=== PATIENT | female | born 1960 | race American Indian/Alaskan Native ===

== ENCOUNTER 2017-11-30 17:12 | Inpatient (IN) | payer MEDICAID ==
[2017-11-30 17:12] VITALS: BMI 22.8
--- NOTE | 2017-11-30 17:42 | ED PDOC ---
Arrival/HPI <Theo Dewitt P - Last Filed: 11/30/17 21:36> - General Historian: Patient <Cedric Castro - Last Filed: 12/01/17 09:16> - General Chief Complaint: Abdominal Pain Time Seen by Provider: 11/30/17 17:30 - History of Present Illness Narrative History of Present Illness (Text): 11/30/17 17:36 57 y/o female, pmh including htn/copd, nkda, post menopausal, c/o abdominal pain with distension with nausea/vomiting x 1 day. Pt. stated that she has generalized abdominal pain about 2 days ago, associated with nausea and vomiting today with 1 episode, associated with abdominal distension, no fever or chills, no headache or night sweat, no numbness or tingling, no palpitation, no night sweat, no other medical or psychological complaints. (Cedric Castro) Past Medical History - Provider Review Nursing Documentation Reviewed: Yes - Cardiac Hx Cardiac Disorders: Yes Hx Cardiac Arrhythmia: Yes Hx Hypertension: Yes - Pulmonary Hx Respiratory Disorders: Yes Hx Asthma: Yes - Neurological Hx Neurological Disorder: No - HEENT Hx HEENT Disorder: No - Renal Hx Renal Disorder: No - Endocrine/Metabolic Hx Endocrine Disorders: No - Hematological/Oncological Hx Blood Disorders: No - Integumentary Hx Dermatological Disorder: No - Musculoskeletal/Rheumatological Hx Musculoskeletal Disorders: No - Gastrointestinal Hx Gastrointestinal Disorders: No - Genitourinary/Gynecological Hx Genitourinary Disorders: Yes Other/Comment: FIBROIDS - Psychiatric Hx Psychophysiologic Disorder: No Hx Substance Use: No - Surgical History Hx Hysterectomy: Yes <Cedric Castro - Last Filed: 12/01/17 09:16> Family/Social History - Physician Review Nursing Documentation Reviewed: Yes Family/Social History: Unknown Family HX Smoking Status: Former Smoker Hx Alcohol Use: No Hx Substance Use: No <Cedric Castro - Last Filed: 12/01/17 09:16> Allergies/Home Meds <Theo Dewitt P - Last Filed: 11/30/17 21:36> <Cedric Castro - Last Filed: 12/01/17 09:16> Allergies/Adverse Reactions: Allergies No Known Allergies Allergy (Verified 11/30/17 17:13) Home Medications: Home Meds Medication Instructions Recorded Confirmed Albuterol HFA [Ventolin HFA 90 1 inh INH PRN PRN 12/27/15 11/30/17 mcg/actuation (8 g)] Fluticasone/Salmeterol 100/50 1 inh INH BID 12/27/15 11/30/17 [Advair Diskus 100/50] Tiotropium [place]man Inhaler 1 inh INH DAILY 12/27/15 11/30/17 [Spiriva Inhalation Handihaler Device] Aspirin [Adult Low Dose Aspirin EC] 81 mg PO DAILY 11/30/17 11/30/17 Metoprolol Tartrate [Lopressor] 25 mg PO DAILY 11/30/17 11/30/17 amLODIPine [Norvasc] 5 mg PO DAILY 11/30/17 11/30/17 Review of Systems - Review of Systems Constitutional: absent: Fatigue, Fevers Eyes: absent: Vision Changes ENT: absent: Hearing Changes Respiratory: absent: SOB, Cough Cardiovascular: absent: Chest Pain Gastrointestinal: Abdominal Pain, Constipation, Nausea, Vomiting. absent: Diarrhea Musculoskeletal: absent: Arthralgias, Back Pain Skin: absent: Rash, Pruritis Neurological: absent: Headache, Dizziness Psychiatric: absent: Anxiety, Depression, Suicidal Ideation <Cedric Castro Q - Last Filed: 12/01/17 09:16> Physical Exam Vital Signs Reviewed: Yes Temperature: Afebrile Blood Pressure: Normal Pulse: Regular Respiratory Rate: Normal Appearance: Positive for: Well-Appearing, Non-Toxic, Comfortable Pain Distress: Mild Mental Status: Positive for: Alert and Oriented X 3 - Systems Exam Head: Present: Atraumatic, Normocephalic Pupils: Present: PERRL Extroacular Muscles: Present: EOMI Conjunctiva: Present: Normal Mouth: Present: Moist Mucous Membranes Neck: Present: Normal Range of Motion Respiratory/Chest: Present: Clear to Auscultation, Good Air Exchange. No: Respiratory Distress, Accessory Muscle Use Cardiovascular: Present: Regular Rate and Rhythm, Normal S1, S2. No: Murmurs Abdomen: Present: Tenderness (epigastric). No: Distention, Normal Bowel Sounds (hypoactive bowel sound), Peritoneal Signs, Rebound, Guarding, McBurney's Point Tender, Rovsing's Sign Present Back: Present: Normal Inspection Upper Extremity: Present: Normal Inspection. No: Cyanosis, Edema Lower Extremity: Present: Normal Inspection. No: Edema Neurological: Present: GCS=15, CN II-XII Intact, Speech Normal, Motor Func Grossly Intact, Gait Normal, Memory Normal Skin: Present: Warm, Dry, Normal Color. No: Rashes Psychiatric: Present: Alert, Oriented x 3, Normal Insight, Normal Concentration <Cedric Castro - Last Filed: 12/01/17 09:16> Vital Signs Temp Pulse Resp BP Pulse Ox 11/30/17 20:31 99 F 89 18 122/75 96 11/30/17 17:15 99.3 F 95 H 17 126/82 95 Medical Decision Making Re-evaluation Time: 21:39 Reassessment Condition: Re-examined, Improving,but remains with symptoms - Lab Interpretations I have reviewed the lab results: Yes Interpretation: Abnormal lab values <Theo Dewitt - Last Filed: 11/30/17 21:36> - Lab Interpretations I have reviewed the lab results: Yes <Cedric Castro - Last Filed: 12/01/17 09:16> ED Course and Treatment: 11/30/17 21:36 I spoke with medical instructor regarding patient symptoms, labs, and CT result. He stated Dr. Stewart is next. I spoke with Dr. Stewart regarding patient c/o abdominal pain, nausea, vomiting x 2 days. We reviewed labs with Leukocytosis, and CT result which demonstrtaes Colitis of mid ascending colon. Dr. Stewart agreed with admission. Patient agreed with the plan for admission. (Theo Dewitt) 11/30/17 17:49 Differential: Constipation vs. Obstruction vs. Colitis vs. UTI vs. Gastritis vs. Peritonitis -Labs/lipase/UA -CT Abdomen and pelvis -IVF/pepcid/zofran -Observer and reassess 11/30/17 20:20 -Labs are non-significant except wbc 17.6, afebrile -UA show no UTI -Pt. still in pain, Morphine 4mg IV ordered -CT abdomen and pelvis ordered and pending result. -Case endorsed to incoming GRETCHEN Dewitt to follow up the CT result and pending labs. (Cedric Castro) - Lab Interpretations Lab Results: 11/30/17 18:56 11/30/17 18:56 Lab Results 11/30/17 18:56: WBC 17.8 H, RBC 4.98, Hgb 14.5, Hct 40.2, MCV 80.7, MCH 29.1, MCHC 36.1, RDW 15.0 H, Plt Count 294, MPV 9.9, Gran % 77.1 H, Lymph % (Auto) 14.4 L, [place]cher % (Auto) 7.5 H, Eos % (Auto) 0.8 L, Baso % (Auto) 0.2, Gran # 13.68 H, Lymph # (Auto) 2.6, [place]cher # (Auto) 1.3 H, Eos # (Auto) 0.2, Baso # (Auto ) 0.03 11/30/17 18:56: Sodium 141, Potassium 4.1, Chloride 106, Carbon Dioxide 24, Anion Gap 15, BUN 11, Creatinine 0.6 L, Est GFR ( Amer) > 60, Est GFR ( Non-Af Amer) > 60, Random Glucose 109, Calcium 9.6, Total Bilirubin 0.7, AST 35 , ALT 43, Alkaline Phosphatase 108, Total Protein 7.9, Albumin 4.6, Globulin 3.2 , Albumin/Globulin Ratio 1.4, Lipase 41 11/30/17 18:56: Urine Color Yellow, Urine Appearance Clear, Urine pH 6.5, Ur Specific [place] 1.020, Urine Protein Trace H, Urine Glucose (UA) Negative, Urine Ketones Trace H, Urine Blood Trace-intact H, Urine Nitrate Negative, Urine Bilirubin Negative, Urine Urobilinogen 0.2, Ur Leukocyte Esterase Negative , Urine RBC 1 - 3, Urine WBC 2 - 5, Ur Epithelial Cells 3 - 4, Urine Bacteria Few - RAD Interpretation Narrative RAD Interpretations (Text): 11/30/17 21:13 FINDINGS: Lower thorax: Mild bilateral lower lobe dependent air space opacity-atelectasis. ABDOMEN: Liver: Normal. No mass. Gallbladder and bile ducts: Normal. No calcified stones. No ductal dilation. Pancreas: Normal. No ductal dilation. Spleen: Normal. No splenomegaly. Adrenals: Normal. No mass. Kidneys and ureters: Normal. No hydronephrosis. Stomach and bowel: No evidence of bowel obstruction. Appendix not identified - several bowel loops in lower abdomen. No pericecal inflammatory changes. PELVIS: Bladder: Unremarkable as visualized. Reproductive: Uterus is not identified. ABDOMEN and PELVIS: Intraperitoneal space: Normal. No free air. No significant fluid collection. Bones/joints: Chronic degenerative changes of the lumbar spine. Soft tissues: Moderate 9-12 mm wall thickening and inhomogeneity of the surrounding fat involving midportion of the ascending colon in right abdomen. Vasculature: Numerous pelvic phleboliths. Chronic atherosclerotic calcification of the vasculature. Lymph nodes: Normal. No enlarged lymph nodes. IMPRESSION: 1. Findings most suspicious for colitis involving mid ascending colon as described above. 2. No evidence of bowel obstruction. 11/30/17 21:40 CXR: NAD (Dewitt,Nahim P) Radiology Orders: 11/30/17 17:43 ABD & PELVIS IV CONTRAST ONLY [CT] Stat 11/30/17 20:54 CHEST PORTABLE [RAD] Stat - Medication Orders Current Medication Orders: Amlodipine Besylate (Norvasc) 5 mg PO DAILY [facility] Arformoterol Tartrate (Brovana) 15 mcg IH [id number] [facility] Last Admin: 12/01/17 08:45 Dose: 15 mcg Aspirin (Ecotrin) 81 mg PO DAILY [facility] Budesonide (Pulmicort Respules) 0.25 mg IH [id number] [facility] Last Admin: 12/01/17 08:45 Dose: 0.25 mg Enoxaparin Sodium (Lovenox) 40 mg SC DAILY [facility] PRN Reason: Protocol Sodium Chloride (Sodium Chloride 0.9%) 1,000 mls @ 100 mls/hr IV .Q10H [facility] Last Admin: 11/30/17 21:49 Dose: 100 mls/hr eMAR Start Stop Document 11/30/17 21:49 LA (Rec: 11/30/17 21:50 LA [email or web address]) Intravenous Solution Start Date 11/30/17 Start Time 21:50 Metronidazole (Flagyl) 500 mg in 100 mls @ 100 mls/hr IVPB Q8 [facility] PRN Reason: Protocol Last Admin: 12/01/17 06:55 Dose: 100 mls/hr eMAR Start Stop Document 12/01/17 06:55 RR (Rec: 12/01/17 07:02 RR [id number]) Intravenous Solution Start Date 12/01/17 Start Time 06:59 End Date 12/01/17 End time 07:59 Total Infusion Time 60 Ceftriaxone Sodium (Rocephin 1 Gram Ivpb) 1 gm in 100 mls @ 100 mls/hr IVPB DAILY [facility] PRN Reason: Protocol Metoprolol Tartrate (Lopressor) 25 mg PO DAILY [facility] Morphine Sulfate (Morphine) 2 mg IVP Q4H PRN PRN Reason: Pain, moderate (4-7) Ondansetron HCl (Zofran Inj) 4 mg IVP Q6H PRN PRN Reason: Nausea/Vomiting Pantoprazole Sodium (Protonix Inj) 40 mg IVP DAILY [facility] Polyethylene Glycol (Miralax) 17 gm PO BID [facility] Tiotropium [place] (Spiriva) 18 mcg INH DAILY [facility] Discontinued Medications Famotidine (Pepcid) 20 mg IVP STAT STA Stop: 11/30/17 17:44 Last Admin: 11/30/17 18:07 Dose: 20 mg IVP Administration Document 11/30/17 18:07 LA (Rec: 11/30/17 18:07 [email or web address]) Charges for Administration # of IVP Administrations 1 Sodium Chloride (Sodium Chloride 0.9%) 1,000 mls @ 999 mls/hr IV .Q1H1M STA Stop: 11/30/17 18:43 Last Admin: 11/30/17 18:07 Dose: 999 mls/hr eMAR Start Stop Document 11/30/17 18:07 LA (Rec: 11/30/17 18:07 LA [email or web address] Intravenous Solution Start Date 11/30/17 Start Time 18:07 End Date 11/30/17 End time 19:08 Total Infusion Time 61 Metronidazole (Flagyl) 500 mg in 100 mls @ 100 mls/hr IVPB STAT STA PRN Reason: Protocol Stop: 11/30/17 21:50 Last Admin: 11/30/17 22:42 Dose: 100 mls/hr eMAR Start Stop Document 11/30/17 22:42 LA (Rec: 11/30/17 22:43 LA [email or web address] Intravenous Solution Start Date 11/30/17 Start Time 22:42 End Date 11/30/17 End time 23:43 Total Infusion Time 61 Ceftriaxone Sodium (Rocephin 1 Gram Ivpb) 1 gm in 100 mls @ 200 mls/hr IVPB STAT STA PRN Reason: Protocol Stop: 11/30/17 21:20 Last Admin: 11/30/17 21:36 Dose: 200 mls/hr eMAR Start Stop Document 11/30/17 21:36 GMD (Rec: 11/30/17 21:36 GMD [id number]) Intravenous Solution Start Date 11/30/17 Start Time 21:36 End Date 11/30/17 End time 22:06 Total Infusion Time 30 Morphine Sulfate (Morphine) 4 mg IVP STAT STA Stop: 11/30/17 20:06 Last Admin: 11/30/17 20:18 Dose: 4 mg [facility] Pain Assessment Document 11/30/17 20:18 LA (Rec: 11/30/17 20:18 LA [email or web address] Pain Reassessment Is this a pain reassessment? No Sleep Is patient sleeping during reassessment? No Presence of Pain Presence of Pain Yes Pain Scale Used Pain Scale Used Numeric Location Pain Location Body Site Abdomen Description Description Intermittent Intensity of Pain at present 6 IVP Administration Document 11/30/17 20:18 LA (Rec: 11/30/17 20:18 LA [email or web address] Charges for Administration # of IVP Administrations 1 Re-Assess: [facility] Pain Assessment Document 11/30/17 21:18 LA (Rec: 11/30/17 22:43 LA [email or web address] Pain Reassessment Is this a pain reassessment? Yes Sleep Is patient sleeping during reassessment? No Presence of Pain Presence of Pain Yes Pain Scale Used Pain Scale Used Numeric Location Pain Location Body Site Abdomen Description Intensity of Pain at present 4 Morphine Sulfate (Morphine) 4 mg IVP STAT STA Stop: 11/30/17 23:43 Last Admin: 12/01/17 01:03 Dose: 4 mg [facility] Pain Assessment Document 12/01/17 01:03 RR (Rec: 12/01/17 01:04 RR [id number]) Pain Reassessment Is this a pain reassessment? Yes Presence of Pain Presence of Pain Yes Pain Scale Used Pain Scale Used Numeric Location Pain Location Body Site Abdomen Description Description Acute Intensity of Pain at present 8 Pain Behavior Moaning Guarding Facial Grimacing Alleviating Factors/Management Medication Techniques Alleviating Factors Medication IVP Administration Document 12/01/17 01:03 RR (Rec: 12/01/17 01:04 RR [id number]) Charges for Administration # of IVP Administrations 1 Re-Assess: [facility] Pain Assessment Document 12/01/17 02:03 RR (Rec: 12/01/17 04:19 RR [id number] Pain Reassessment Is this a pain reassessment? Yes Sleep Is patient sleeping during reassessment? Yes Pain Scale Used Pain Scale Used FLACC Ondansetron HCl (Zofran Inj) 4 mg IVP STAT STA Stop: 11/30/17 17:44 Last Admin: 11/30/17 18:07 Dose: 4 mg IVP Administration Document 11/30/17 18:07 LA (Rec: 11/30/17 18:07 LA [email or web address] Charges for Administration # of IVP Administrations 1 Ondansetron HCl (Zofran Inj) 4 mg IVP ONCE ONE Stop: 11/30/17 23:52 Last Admin: 12/01/17 01:03 Dose: 4 mg IVP Administration Document 12/01/17 01:03 RR (Rec: 12/01/17 01:03 RR [id number]) Charges for Administration # of IVP Administrations 1 - PA / [id number] PROGRAMMER / Resident Statement MD/DO has reviewed & agrees with the documentation as recorded. <Cedric Castro - Last Filed: 12/01/17 09:16> Disposition/Present on Arrival - Present on Arrival Any Indicators Present on Arrival: No History of DVT/PE: No History of Uncontrolled Diabetes: No Urinary Catheter: No History of Decub. Ulcer: No - Disposition Have Diagnosis and Disposition been Completed?: Yes Patient Plan: Admission <Theo Dewitt - Last Filed: 11/30/17 21:36> - Present on Arrival Any Indicators Present on Arrival: No History of DVT/PE: No History of Uncontrolled Diabetes: No Urinary Catheter: No History of Decub. Ulcer: No History Surgical Site Infection Following: None - Disposition Have Diagnosis and Disposition been Completed?: Yes Disposition Time: 20:18 <Cedric Castro - Last Filed: 12/01/17 09:16> - Disposition Diagnosis: Abdominal pain, Leukocytosis, Colitis Disposition: HOSPITALIZED Patient Problems: Current Active Problems Problem Status Onset Abdominal pain Acute Leukocytosis Acute Colitis Acute Condition: STABLE
[2017-11-30] MEDS ORDERED: Sodium Chloride 0.9% 1,000 ML IV STA (17:43)
[2017-11-30 19:02] LABS: BASO # 0.03 K/mm3 (0.0-2.0); BASO % 0.2 % (0.0-3.0); EOS # 0.2 (0.0-0.7); EOS % 0.8 % (1.5-5.0); GRAN # 13.68 (1.4-6.5); GRAN % 77.1 % (50.0-68.0); HEMOGLOBIN 14.5 g/dL (12.0-16.0); LYMPH # 2.6 (1.2-3.4); LYMPH % 14.4 % (22.0-35.0); MEAN CELL VOLUME 80.7 fl (80.0-105.0); MEAN CORPUSCULAR HEMOGLOBIN 29.1 pg (25.0-35.0); MEAN CORPUSCULAR HGB CONC 36.1 g/dl (31.0-37.0); MEAN PLATELET VOLUME 9.9 fl (7.0-11.0); MONO # 1.3 (0.1-0.6); MONO % 7.5 % (1.0-6.0); PH,URINE 6.5 (4.7-8.0); RBC 4.98 10^6/uL (3.5-6.1); URINE BILIRUBIN NEGATIVE (NEGATIVE); URINE BLOOD TRACE-INTACT (NEGATIVE); URINE GLUCOSE (UA) NEGATIVE (NEGATIVE); URINE LEUKOCYTE ESTERASE NEGATIVE Leu/uL (NEGATIVE); URINE PROTEIN TRACE mg/dL (<30 mg/dL); URINE UROBILINOGEN 0.2 E.U./dL (<1 E.U./dL); WHITE BLOOD COUNT 17.8 10^3/ul (4.5-11.0)
[2017-11-30 19:09] LABS: URINE APPEARANCE CLEAR (CLEAR); URINE COLOR YELLOW (YELLOW)
[2017-11-30 19:13] LABS: ALB/GLOB RATIO 1.4 (1.1-1.8); ALBUMIN 4.6 g/dL (3.0-4.8); ALT/SGPT 43 U/L (7-56); AST/SGOT 35 U/L (14-36); BLOOD UREA NITROGEN 11 mg/dL (7-21); CALCIUM 9.6 mg/dL (8.4-10.5); GFR AFRICAN-AMERICAN > 60; GFR NON-AFRICAN AMERICAN > 60; LIPASE 41 U/L (23-300)
[2017-11-30 19:16] LABS: URINE BACTERIA FEW (NEG)
[2017-11-30] MEDS ORDERED: Iohexol 350 MG/100 ML VIAL ONE (19:44)
[2017-11-30] MEDS ORDERED: Morphine 4 mg/ml ISec IVP STA ×2 (20:05→23:42)
[2017-11-30] MEDS ORDERED: metroNIDAZOLE IV 500 mg/100 ml 500 MG/100 ML BAG IVPB STA (20:51)
[2017-11-30] MEDS ORDERED: cefTRIAXone 1 gm 1 GM/100 ML BAG IVPB STA (20:51)
[2017-11-30] MEDS: Sodium Chloride 0.9% 1,000 ML IV SCH (21:49)
--- NOTE | 2017-12-01 03:10 | CP.PCM.HP ---
<Brent,Sasha - Last Filed: 12/01/17 08:56> History of Present Illness - History of Present Illness History of Present Illness: Sasha Kennedy D.O. PGY-1, HISTORY & PHYSICAL NOTE FOR HOSPITALIST TEAM CC: Abdominal pain, nausea, vomiting x 1 day after eating rice/beans 57 y/o F with pmhx of HTN, COPD presented to ED for complaints of constant, pressure like abdominal pain in the RLQ that has been getting worse since it started yesterday evening. Pt is traveling here from [place], and had visited to attend a [employer]. Yesterday she had consumed cooked rice, beans and kale salad. Shortly afterwards, she began experiencing a pressure like pain that has progressively worsened. She reports that she doesn't know anybody else from the cookout that's also sick. She reports the pain doesn't radiate from the RLQ and his tender to palpation and is not worsened or alleviated by anything in particular. She noticed her abdomen is more distended than usual. She reports nausea with nonbloody, nonbilious vomiting since this am. She reports constipation, however is passing gas. She denies fevers, chills, chest pain, shortness of breath, diarrhea, night sweats, headache, dizziness, numbness, tingling. PMD: None Metalizer: Dr. Ary Zaldivar: Dr. Obregon PMH: HTN, COPD PSH: "vocal cord surgery", hysterectomy, b/l carpal tunnel release SH: Cigarette hx: 1 pack x 30 years. Currently none. Stopped alcohol 17 years ago FH: Mother: HTN/DM. Father: HTN/Drug abuse All: Seasonal Meds: See MAR Present on Admission - Present on Admission Any Indicators Present on Admission: No Review of Systems - Review of Systems All systems: reviewed and no additional remarkable complaints except (as per HPI , otherwise negative) Past Patient History - Past Social History Smoking Status: Former Smoker - CARDIAC Hx Cardiac Disorders: Yes Hx Cardia Arrhythmia: Yes Hx Hypertension: Yes - PULMONARY Hx Respiratory Disorders: Yes Hx Asthma: Yes - NEUROLOGICAL Hx Neurological Disorder: No - HEENT Hx HEENT Problems: No - RENAL Hx Chronic Kidney Disease: No - ENDOCRINE/METABOLIC Hx Endocrine Disorders: No - HEMATOLOGICAL/ONCOLOGICAL Hx Blood Disorders: No - INTEGUMENTARY Hx Dermatological Problems: No - MUSCULOSKELETAL/RHEUMATOLOGICAL Hx Musculoskeletal Disorders: No Hx Falls: No - GASTROINTESTINAL Hx Gastrointestinal Disorders: No - GENITOURINARY/GYNECOLOGICAL Hx Genitourinary Disorders: Yes Other/Comment: FIBROIDS - PSYCHIATRIC Hx Psychophysiologic Disorder: No - SURGICAL HISTORY Hx Hysterectomy: Yes Meds Allergies/Adverse Reactions: Allergies Allergy/AdvReac Type Severity Reaction Status Date / Time No Known Allergies Allergy Verified 11/30/17 17:13 Physical Exam - Constitutional Appears: Well, Non-toxic, No Acute Distress - Head Exam Head Exam: ATRAUMATIC, NORMOCEPHALIC - Eye Exam Eye Exam: EOMI, Normal appearance - ENT Exam ENT Exam: Mucous Membranes Dry, Normal Exam - Neck Exam Neck exam: Positive for: Normal Inspection. Negative for: Meningismus - Respiratory Exam Respiratory Exam: Decreased Breath Sounds, Clear to Auscultation Bilateral - Cardiovascular Exam Cardiovascular Exam: REGULAR RHYTHM, +S1, +S2 - GI/Abdominal Exam GI & Abdominal Exam: Distended, Normal Bowel Sounds, Rebound (RLQ & LLQ), Soft, Tenderness (RLQ/LLQ) - Extremities Exam Extremities exam: Positive for: normal inspection, pedal pulses present. Negative for: calf tenderness - Back Exam Back exam: absent: CVA tenderness (L), CVA tenderness (R) - Neurological Exam Neurological exam: Alert, CN II-XII Intact - Psychiatric Exam Psychiatric exam: Normal Affect, Normal Mood - Skin Skin Exam: Dry, Warm Results - Vital Signs Recent Vital Signs: Last Vital Signs Temp 98.7 F 11/30/17 23:23 Pulse 90 11/30/17 23:23 Resp 18 11/30/17 23:23 BP 122/78 11/30/17 23:23 Pulse Ox 99 11/30/17 22:50 - Labs Result Diagrams: 12/01/17 06:00 12/01/17 06:00 Assessment & Plan - Assessment and Plan (Free Text) Assessment: 57 y/o F with pmhx of COPD, HTN admitted for colitis. Pt is a visitor from [place]. Pt. had recently consumed rice, beans and kale salad at a cookout yesterday evening. She subsequently developed abdominal pain, nausea, and vomiting without diarrhea. CT abdomen done in the ED showed colitis involving the mid ascending colon without signs of bowel obstruction. She was given a bolus of NS, rocephin, flagyl, morphine, zofran, and pepcid in the ED. She is admitted to wards and was continued on antibiotics and pain control. Plan: 1. Colitis Like secondary for food consumption CT-Abdomen shows findings most suspicious for colitis involving mid ascending colon. No evidence of bowel obstruction. Continue Metronidazole, Rocephin Start Morphine 2mg IVP q4H prn Start Zofran 4mg IVP q5H prn NS @100mL/hr Clear liquid diet. Advance as tolerated GI Consult: Zack RODNEY Consult: Cesar Follow-up pancultures 2. Hx COPD Pt reports no respiratory distress Continue home Spiriva, brovana, pulmicort Continue Albuterol prn 3. HTN Continue home metoprolol 25mg Continue home amlodipine 5mg GI/DVT ppx: Protonix/Lovenox Case discussed with and reviewed by attending physician, Dr. Stewart - Date & Time Date: 12/01/17 <Oli Stewart - Last Filed: 12/01/17 20:54> Results - Vital Signs Recent Vital Signs: Last Vital Signs Temp 97.9 F 12/01/17 18:00 Pulse 72 12/01/17 18:00 Resp 20 12/01/17 18:00 BP 113/74 12/01/17 18:00 Pulse Ox 95 12/01/17 18:00 - Labs Result Diagrams: 12/01/17 06:00 12/01/17 06:00 Labs: Laboratory Results - last 24 hr 12/01/17 12/01/17 12/01/17 05:00 06:00 06:00 WBC 12.9 H D RBC 4.32 Hgb 12.3 D Hct 34.9 L MCV 80.8 MCH 28.5 MCHC 35.2 RDW 15.0 H Plt Count 250 MPV 10.1 Sodium 141 Potassium 3.9 Chloride 109 H Carbon Dioxide 24 Anion Gap 13 BUN 8 Creatinine 0.6 L Est GFR ( Amer) > 60 Est GFR (Non-Af Amer) > 60 Random Glucose 93 Calcium 8.6 Phosphorus 3.3 Magnesium 1.8 Total Bilirubin 0.5 AST 26 ALT 37 Alkaline Phosphatase 78 Total Protein 6.4 Albumin 3.6 Globulin 2.8 Albumin/Globulin Ratio 1.3 Attending/Attestation - Attestation I have personally seen and examined this patient.: Yes I have fully participated in the care of the patient.: Yes I have reviewed all pertinent clinical information: Yes Notes (Text): 12/01/17 20:54 Patient was seen when she was in [facility]-02. Agree with history, physical examination, assessment and plan.
[2017-12-01] MEDS: metroNIDAZOLE IV 500 mg/100 ml 500 MG/100 ML BAG IVPB SCH ×3 (06:55→22:14)
[2017-12-01 07:47] LABS: MEAN CELL VOLUME 80.8 fl (80.0-105.0); MEAN CORPUSCULAR HEMOGLOBIN 28.5 pg (25.0-35.0); MEAN CORPUSCULAR HGB CONC 35.2 g/dl (31.0-37.0); MEAN PLATELET VOLUME 10.1 fl (7.0-11.0); RBC 4.32 10^6/uL (3.5-6.1); WHITE BLOOD COUNT 12.9 10^3/ul (4.5-11.0)
[2017-12-01 07:48] LABS: HEMOGLOBIN 12.3 g/dL (12.0-16.0)
[2017-12-01 08:11] LABS: ALB/GLOB RATIO 1.3 (1.1-1.8); ALBUMIN 3.6 g/dL (3.0-4.8); ALT/SGPT 37 U/L (7-56); AST/SGOT 26 U/L (14-36); BLOOD UREA NITROGEN 8 mg/dL (7-21); CALCIUM 8.6 mg/dL (8.4-10.5); GFR AFRICAN-AMERICAN > 60; GFR NON-AFRICAN AMERICAN > 60
[2017-12-01 08:28] VITALS: RESP 20
--- NOTE | 2017-12-01 08:36 | RAD ---
Date of service: 11/30/2017 HISTORY: admission COMPARISON: No prior. FINDINGS: LUNGS: The lungs are well inflated and clear. PLEURA: No significant pleural effusion identified, no pneumothorax apparent. CARDIOVASCULAR: Normal. OSSEOUS STRUCTURES: No significant abnormalities. VISUALIZED UPPER ABDOMEN: Normal. OTHER FINDINGS: None. IMPRESSION: No active pulmonary disease.
[2017-12-01] MEDS: Arformoterol 15 mcg/2 ml Inh Sol IH SCH ×2 (08:45→20:23)
[2017-12-01] MEDS: Budesonide 0.25 mg/2 ml Inhal Susp UD IH SCH ×2 (08:45→20:23)
--- NOTE | 2017-12-01 09:45 | CP.PCM.CON ---
<Randell Carney - Last Filed: 12/01/17 12:10> History of Present Illness - History of Present Illness History of Present Illness: Gastroenterology Consult note for Dr. Zack Carney PGY2 Chief Complaint: Abdominal pain and constipation 57 F with history of sciatica and hypertension presenting with complaints of abdominal pain which began this past Friday after consuming rice and beans. Patient states prior to this day she did experience a sharp pain in her right mid quadrant which occurred once. Patient states when she consumed the rice and beans later she began experiencing abdominal cramps and gas which she didn't think much of at the time since she assumed it was the beans which caused her discomfort. She described the right mid and lower quadrant pain as 10/10, constant and non radiating. Stating the pain was exacerbated with coughing. She attempted to take peptobismol and tramadol for pain relief however pain was not relieved. She states the following day she noticed the pain was still present and she then decided to go to the emergency department. Patient states her last colonoscopy was in 2015 in [place] which revealed no abnormal findings. Lab values: WBC 17.8 on admission, now 12.9. H&H 14.5/40.2 on admission, now 12.3/34.9, Cr 0.6, AST 26, ALT 37, Lipase 41 Imaging: CT abdomen/pelvis-colitis of mid ascending colon Review of Systems - Constitutional Constitutional: absent: Chills, Fever - EENT Ears: absent: Dizziness - Cardiovascular Cardiovascular: absent: Chest Pain, Dyspnea - Respiratory Respiratory: absent: Cough, Dyspnea - Gastrointestinal Gastrointestinal: Abdominal Pain (mid and lower right quadrant), Constipation. absent: Diarrhea, Nausea, Vomiting - Genitourinary Genitourinary: absent: Dysuria, Flank Pain - Musculoskeletal Musculoskeletal: absent: Back Pain - Integumentary Integumentary: absent: Jaundice - Neurological Neurological: Tingling (sciatica of lower extremities). absent: Dizziness, Numbness - Psychiatric Psychiatric: absent: Anxiety - Endocrine Endocrine: absent: Fatigue Past Patient History - Past Social History Smoking Status: Former Smoker - CARDIAC Hx Cardiac Disorders: Yes Hx Cardia Arrhythmia: Yes Hx Hypertension: Yes - PULMONARY Hx Respiratory Disorders: Yes Hx Asthma: Yes - NEUROLOGICAL Hx Neurological Disorder: No - HEENT Hx HEENT Problems: No - RENAL Hx Chronic Kidney Disease: No - ENDOCRINE/METABOLIC Hx Endocrine Disorders: No - HEMATOLOGICAL/ONCOLOGICAL Hx Blood Disorders: No - INTEGUMENTARY Hx Dermatological Problems: No - MUSCULOSKELETAL/RHEUMATOLOGICAL Hx Musculoskeletal Disorders: No - GASTROINTESTINAL Hx Gastrointestinal Disorders: No - GENITOURINARY/GYNECOLOGICAL Hx Genitourinary Disorders: Yes Other/Comment: FIBROIDS - PSYCHIATRIC Hx Psychophysiologic Disorder: No Hx Substance Use: No - SURGICAL HISTORY Hx Hysterectomy: Yes Meds Allergies/Adverse Reactions: Allergies Allergy/AdvReac Type Severity Reaction Status Date / Time No Known Allergies Allergy Verified 11/30/17 17:13 - Medications Medications: Current Medications Amlodipine Besylate (Norvasc) 5 mg PO DAILY [facility] Arformoterol Tartrate (Brovana) 15 mcg IH [id number] [facility] Last Admin: 12/01/17 08:45 Dose: 15 mcg Aspirin (Ecotrin) 81 mg PO DAILY [facility] Budesonide (Pulmicort Respules) 0.25 mg IH [id number] [facility] Last Admin: 12/01/17 08:45 Dose: 0.25 mg Enoxaparin Sodium (Lovenox) 40 mg SC DAILY [facility] PRN Reason: Protocol Sodium Chloride (Sodium Chloride 0.9%) 1,000 mls @ 100 mls/hr IV .Q10H [facility] Last Admin: 11/30/17 21:49 Dose: 100 mls/hr Metronidazole (Flagyl) 500 mg in 100 mls @ 100 mls/hr IVPB Q8 [facility] PRN Reason: Protocol Last Admin: 12/01/17 06:55 Dose: 100 mls/hr Ceftriaxone Sodium (Rocephin 1 Gram Ivpb) 1 gm in 100 mls @ 100 mls/hr IVPB DAILY [facility] PRN Reason: Protocol Metoprolol Tartrate (Lopressor) 25 mg PO DAILY [facility] Morphine Sulfate (Morphine) 2 mg IVP Q4H PRN PRN Reason: Pain, moderate (4-7) Ondansetron HCl (Zofran Inj) 4 mg IVP Q6H PRN PRN Reason: Nausea/Vomiting Pantoprazole Sodium (Protonix Inj) 40 mg IVP DAILY [facility] Polyethylene Glycol (Miralax) 17 gm PO BID [facility] Tiotropium [place] (Spiriva) 18 mcg INH DAILY [facility] Physical Exam - Constitutional Appears: Non-toxic - Head Exam Head Exam: ATRAUMATIC, NORMAL INSPECTION, NORMOCEPHALIC - Eye Exam Eye Exam: EOMI, Normal appearance - ENT Exam ENT Exam: Mucous Membranes Moist, Normal Exam - Neck Exam Neck exam: Positive for: Normal Inspection - Respiratory Exam Respiratory Exam: Clear to Auscultation Bilateral, NORMAL BREATHING PATTERN. absent: Rhonchi, Wheezes - Cardiovascular Exam Cardiovascular Exam: REGULAR RHYTHM, +S1, +S2 - GI/Abdominal Exam GI & Abdominal Exam: Distended, Normal Bowel Sounds, Soft. absent: Firm, Guarding, Pulsatile Mass, Rigid - Extremities Exam Extremities exam: Positive for: normal inspection - Back Exam Back exam: NORMAL INSPECTION - Neurological Exam Neurological exam: Alert, Oriented x3 - Psychiatric Exam Psychiatric exam: Normal Affect, Normal Mood - Skin Skin Exam: Normal Color, Warm Results - Vital Signs Recent Vital Signs: Last Vital Signs Temp 97.7 F 12/01/17 08:27 Pulse 84 12/01/17 08:27 Resp 20 12/01/17 08:27 BP 106/69 12/01/17 08:27 Pulse Ox 98 12/01/17 08:27 - Labs Result Diagrams: 12/01/17 06:00 12/01/17 06:00 Labs: Laboratory Results - last 24 hr 12/01/17 12/01/17 12/01/17 05:00 06:00 06:00 WBC 12.9 H D RBC 4.32 Hgb 12.3 D Hct 34.9 L MCV 80.8 MCH 28.5 MCHC 35.2 RDW 15.0 H Plt Count 250 MPV 10.1 Sodium 141 Potassium 3.9 Chloride 109 H Carbon Dioxide 24 Anion Gap 13 BUN 8 Creatinine 0.6 L Est GFR ( Amer) > 60 Est GFR (Non-Af Amer) > 60 Random Glucose 93 Calcium 8.6 Phosphorus 3.3 Magnesium 1.8 Total Bilirubin 0.5 AST 26 ALT 37 Alkaline Phosphatase 78 Total Protein 6.4 Albumin 3.6 Globulin 2.8 Albumin/Globulin Ratio 1.3 Assessment & Plan - Assessment and Plan (Free Text) Assessment: 57 F with history of sciatica and hypertension presenting with complaints of abdominal pain and constipation found to have colitis of mid ascending colon. Plan: Abdominal pain d/t colitis of mid ascending colon -Continue with Flagyl and rocephin day#1 -CLD; advance as tolerated -Patient had recent colonoscopy which revealed no abnormalities in 2016 -Continue to monitor labs Constipation -Miralax BID <Daysi Dixon V - Last Filed: 12/01/17 19:07> Meds - Medications Medications: Current Medications Amlodipine Besylate (Norvasc) 5 mg PO DAILY [facility] Last Admin: 12/01/17 09:52 Dose: 5 mg Arformoterol Tartrate (Brovana) 15 mcg IH [id number] [facility] Last Admin: 12/01/17 08:45 Dose: 15 mcg Aspirin (Ecotrin) 81 mg PO DAILY [facility] Last Admin: 12/01/17 09:50 Dose: 81 mg Budesonide (Pulmicort Respules) 0.25 mg IH [id number] [facility] Last Admin: 12/01/17 08:45 Dose: 0.25 mg Enoxaparin Sodium (Lovenox) 40 mg SC DAILY [facility] PRN Reason: Protocol Last Admin: 12/01/17 10:02 Dose: Not Given Sodium Chloride (Sodium Chloride 0.9%) 1,000 mls @ 100 mls/hr IV .Q10H [facility] Last Admin: 12/01/17 17:27 Dose: 100 mls/hr Metronidazole (Flagyl) 500 mg in 100 mls @ 100 mls/hr IVPB Q8 [facility] PRN Reason: Protocol Last Admin: 12/01/17 14:00 Dose: 100 mls/hr Ceftriaxone Sodium (Rocephin 1 Gram Ivpb) 1 gm in 100 mls @ 100 mls/hr IVPB DAILY [facility] PRN Reason: Protocol Last Admin: 12/01/17 09:53 Dose: 100 mls/hr Metoprolol Tartrate (Lopressor) 25 mg PO DAILY [facility] Last Admin: 12/01/17 09:50 Dose: 25 mg Morphine Sulfate (Morphine) 2 mg IVP Q4H PRN PRN Reason: Pain, moderate (4-7) Ondansetron HCl (Zofran Inj) 4 mg IVP Q6H PRN PRN Reason: Nausea/Vomiting Pantoprazole Sodium (Protonix Inj) 40 mg IVP DAILY [facility] Last Admin: 12/01/17 09:52 Dose: 40 mg Polyethylene Glycol (Miralax) 17 gm PO BID [facility] Last Admin: 12/01/17 17:27 Dose: 17 gm Tiotropium [place] (Spiriva) 18 mcg INH DAILY [facility] Last Admin: 08/06/18 09:54 Dose: 18 mcg Results - Vital Signs Recent Vital Signs: Last Vital Signs Temp 97.7 F 12/01/17 08:27 Pulse 84 12/01/17 09:52 Resp 20 12/01/17 08:27 BP 106/70 12/01/17 09:52 Pulse Ox 98 12/01/17 08:27 - Labs Result Diagrams: 12/01/17 06:00 12/01/17 06:00 Labs: Laboratory Results - last 24 hr 12/01/17 12/01/17 12/01/17 05:00 06:00 06:00 WBC 12.9 H D RBC 4.32 Hgb 12.3 D Hct 34.9 L MCV 80.8 MCH 28.5 MCHC 35.2 RDW 15.0 H Plt Count 250 MPV 10.1 Sodium 141 Potassium 3.9 Chloride 109 H Carbon Dioxide 24 Anion Gap 13 BUN 8 Creatinine 0.6 L Est GFR ( Amer) > 60 Est GFR (Non-Af Amer) > 60 Random Glucose 93 Calcium 8.6 Phosphorus 3.3 Magnesium 1.8 Total Bilirubin 0.5 AST 26 ALT 37 Alkaline Phosphatase 78 Total Protein 6.4 Albumin 3.6 Globulin 2.8 Albumin/Globulin Ratio 1.3 Attending/Attestation - Attestation I have personally seen and examined this patient.: Yes I have fully participated in the care of the patient.: Yes I have reviewed all pertinent clinical information: Yes Notes (Text): This is an addendum to GI consult report dictated by the Broach Grinder.The patient was seen and evaluated earlier. Medical records, lab studies, imagings were reviewed. Last 24 hours events reviewed. Agreed with the above treatment plan as outlined in Broach Grinder 's notes with the addition of the following Patient still has some tenderness right side of the abdomen CT scan and ultrasound scan were reviewed Patient does have right-sided colitis Dilated CBD measuring 11 mm LFTs normal The present clinical presentation is secondary to enterocolitis mainly involving ascending colon probably infectious based on the history. Patient would need elective GI workup including EUS to further evaluate CBD as outpatient Would Continue antibiotics , clear liquid diet For colitis Discussed with Dr. Barrios 12/01/17 19:02
[2017-12-01] MEDS: Enoxaparin 40 mg Syringe SC SCH ×2 (09:51→10:02)
[2017-12-01] MEDS: POLYETHYLENE GLYCOL 3350 17 GM/Dose PACKET PO SCH ×2 (09:52→17:27)
[2017-12-01] MEDS: cefTRIAXone 1 gm 1 GM/100 ML BAG IVPB SCH (09:53)
[2017-12-01] MEDS: Sodium Chloride 0.9% 1,000 ML IV SCH ×2 (09:54→17:27)
[2017-12-01] MEDS: Tiotropium 18 mcg Cap For Inhalation INH SCH (09:54)
[2017-12-01] MEDS ORDERED: Ciprofloxacin 400mg/200ml D5W 400 MG/200 ML BAG IVPB SCH (10:00)
[2017-12-01] MEDS ORDERED: Fluticasone-Salmeterol 100-50mcg Diskus INH SCH (10:00)
--- NOTE | 2017-12-01 11:46 | CT ---
Date of service: 11/30/2017 PROCEDURE: CT Abdomen and Pelvis with contrast HISTORY: generalized abdominal pain, distension COMPARISON: None. TECHNIQUE: CT scan of the abdomen and pelvis was performed after administration of intravenous contrast. Oral contrast was not administered. Coronal and sagittal reformatted images were obtained. Contrast dose: 100 mL Omnipaque 350 Radiation dose: Total exam DLP = 413.14 mGy-cm. This CT exam was performed using one or more of the following dose reduction techniques: Automated exposure control, adjustment of the mA and/or kV according to patient size, and/or use of iterative reconstruction technique. FINDINGS: LOWER THORAX: There is subsegmental atelectasis in the lung bases. LIVER: Mild hepatomegaly and diffuse fatty liver. No gross lesion or ductal dilatation. GALLBLADDER AND BILE DUCTS: No calcified gallstones. There is diffuse dilatation of the common bile duct which measures 11 mm in transverse diameter. There are tiny high attenuation areas in the distal common bile duct. PANCREAS: Normal in size with homogeneous enhancement. No gross lesion or ductal dilatation. SPLEEN: Normal in size and appearance. ADRENALS: No discrete nodule. KIDNEYS AND URETERS: Normal in size with homogeneous enhancement. No hydronephrosis. There is a 9 mm hypodense lesion in the lower pole of the right kidney. VASCULATURE: Atherosclerotic aortoiliac calcifications. No aortic aneurysm. BOWEL: The small bowel loops are normal in caliber. There is scattered colonic diverticulosis. There is segmental moderate mural thickening in the mid ascending colon with pericolonic inflammatory changes. No bowel obstruction. APPENDIX: Normal appendix. PERITONEUM: No free fluid. No free air. LYMPH NODES: No enlarged lymph nodes. BLADDER: Grossly normal in appearance. REPRODUCTIVE: The uterus is surgically absent. BONES: No acute fracture. Advanced multilevel degenerative changes in the lower thoracic spine. OTHER FINDINGS: None. IMPRESSION: 1. Findings are most compatible with acute nonspecific infectious/inflammatory colitis versus diverticulitis involving a segment of mid ascending colon. Follow-up after medical management is recommended to ensure complete resolution and exclude underlying carcinoma. 2. 9 mm indeterminate presumable complicated cyst in the lower pole of the right kidney. Please correlate with renal ultrasound for definitive evaluation. 3. Moderate diffuse dilatation of the common bile duct with suspicion of tiny stones in the distal common bile duct. Clinical follow-up and if clinically indicated correlation with MRCP/ERCP may be performed. 4. Mild hepatomegaly and fatty liver. A preliminary report was provided by [employer] services.
--- NOTE | 2017-12-01 14:57 | US ---
Date of service: 12/01/2017 HISTORY: Abdominal pain COMPARISON: None. TECHNIQUE: Grayscale imaging was performed. FINDINGS: LIVER: Measures 16.0 cm. There is diffuse increased echogenicity of the liver parenchyma. No mass. No intrahepatic bile duct dilatation. GALLBLADDER: There are no gallstones, wall thickening or pericholecystic fluid. The sonographic Rothman's sign is negative. COMMON BILE DUCT: Measures 10.0 mm. No stones. Diffuse dilatation without evidence for intraluminal mass or choledocholithiasis. PANCREAS: Unremarkable as visualized. No mass. No ductal dilatation. RIGHT KIDNEY: Measures 11.3cm. Normal echogenicity. No calculus, mass, or hydronephrosis. LEFT KIDNEY: Measures 10.7cm. Normal echogenicity. No calculus, mass, or hydronephrosis. SPLEEN: Normal in size and contour. No mass. AORTA: No aneurysmal dilatation. IVC: Unremarkable. OTHER FINDINGS: None. IMPRESSION: Mild hepatomegaly. Diffuse increased echogenicity in the liver may reflect hepatic steatosis however parenchymal infectious/ inflammatory etiologies cannot be entirely excluded. Clinical and laboratory correlation is advised. . No cholelithiasis. Mild diffuse dilatation of the common bile duct without sonographic evidence for intraluminal mass or choledocholithiasis. Clinical follow-up and if clinically indicated ERCP/MRCP may be performed.
--- NOTE | 2017-12-01 17:48 | CP.PCM.CON ---
History of Present Illness - History of Present Illness History of Present Illness: 57 year old female with PMH of HTN, COPD, S/P hysterectomy, S/P bilateral carpal tunnel release came in to [facility] complaining of right lower quadrant pain that started happening yesterday after she went to a cookout eating grilled foods and beans. She also ate a restaurant a day prior to the cookout and she ate beans which she felt were not cooked properly. She developed nausea with an episode of vomiting that denies diarrhea, melena or hematochezia. She also denies fever or chills, no headache or dizziness, no chest pain, no SOB, no cough or colds, no sore throat, no dysuria, no hematuria. CT scan of the abdomen and pelvis revealed ascending colon colitis. Infectious diseases consult is requested to further evaluate and manage. Review of Systems - Review of Systems All systems: reviewed and no additional remarkable complaints except (as per HPI ) Past Patient History - Past Social History Smoking Status: Former Smoker - CARDIAC Hx Cardiac Disorders: Yes Hx Cardia Arrhythmia: Yes Hx Hypertension: Yes - PULMONARY Hx Respiratory Disorders: Yes Hx Asthma: Yes - NEUROLOGICAL Hx Neurological Disorder: No - HEENT Hx HEENT Problems: No - RENAL Hx Chronic Kidney Disease: No - ENDOCRINE/METABOLIC Hx Endocrine Disorders: No - HEMATOLOGICAL/ONCOLOGICAL Hx Blood Disorders: No - INTEGUMENTARY Hx Dermatological Problems: No - MUSCULOSKELETAL/RHEUMATOLOGICAL Hx Musculoskeletal Disorders: No - GASTROINTESTINAL Hx Gastrointestinal Disorders: No - GENITOURINARY/GYNECOLOGICAL Hx Genitourinary Disorders: Yes Other/Comment: FIBROIDS - PSYCHIATRIC Hx Psychophysiologic Disorder: No Hx Substance Use: No - SURGICAL HISTORY Hx Hysterectomy: Yes Meds Allergies/Adverse Reactions: Allergies Allergy/AdvReac Type Severity Reaction Status Date / Time No Known Allergies Allergy Verified 11/30/17 17:13 - Medications Medications: Current Medications Amlodipine Besylate (Norvasc) 5 mg PO DAILY [facility] Last Admin: 12/01/17 09:52 Dose: 5 mg Arformoterol Tartrate (Brovana) 15 mcg IH [id number] [facility] Last Admin: 12/01/17 08:45 Dose: 15 mcg Aspirin (Ecotrin) 81 mg PO DAILY [facility] Last Admin: 12/01/17 09:50 Dose: 81 mg Budesonide (Pulmicort Respules) 0.25 mg IH [id number] [facility] Last Admin: 12/01/17 08:45 Dose: 0.25 mg Enoxaparin Sodium (Lovenox) 40 mg SC DAILY [facility] PRN Reason: Protocol Last Admin: 12/01/17 10:02 Dose: Not Given Sodium Chloride (Sodium Chloride 0.9%) 1,000 mls @ 100 mls/hr IV .Q10H [facility] Last Admin: 12/01/17 09:54 Dose: 100 mls/hr Metronidazole (Flagyl) 500 mg in 100 mls @ 100 mls/hr IVPB Q8 [facility] PRN Reason: Protocol Last Admin: 12/01/17 06:55 Dose: 100 mls/hr Ceftriaxone Sodium (Rocephin 1 Gram Ivpb) 1 gm in 100 mls @ 100 mls/hr IVPB DAILY [facility] PRN Reason: Protocol Last Admin: 12/01/17 09:53 Dose: 100 mls/hr Metoprolol Tartrate (Lopressor) 25 mg PO DAILY [facility] Last Admin: 12/01/17 09:50 Dose: 25 mg Morphine Sulfate (Morphine) 2 mg IVP Q4H PRN PRN Reason: Pain, moderate (4-7) Ondansetron HCl (Zofran Inj) 4 mg IVP Q6H PRN PRN Reason: Nausea/Vomiting Pantoprazole Sodium (Protonix Inj) 40 mg IVP DAILY [facility] Last Admin: 12/01/17 09:52 Dose: 40 mg Polyethylene Glycol (Miralax) 17 gm PO BID [facility] Last Admin: 12/01/17 09:52 Dose: 17 gm Tiotropium [place] (Spiriva) 18 mcg INH DAILY [facility] Last Admin: 12/01/17 09:54 Dose: 18 mcg Physical Exam - Constitutional Appears: Non-toxic - Head Exam Head Exam: NORMAL INSPECTION - Respiratory Exam Respiratory Exam: Decreased Breath Sounds - Cardiovascular Exam Cardiovascular Exam: +S1, +S2 - GI/Abdominal Exam GI & Abdominal Exam: Soft, Tenderness (RUQ and RLQ area). absent: Distended, Firm, Guarding, Rebound, Rigid Results - Vital Signs Recent Vital Signs: Last Vital Signs Temp 97.7 F 12/01/17 08:27 Pulse 84 12/01/17 09:52 Resp 20 12/01/17 08:27 BP 106/70 12/01/17 09:52 Pulse Ox 98 08/06/18 08:27 - Labs Result Diagrams: 12/01/17 06:00 12/01/17 06:00 Labs: Laboratory Results - last 24 hr 12/01/17 12/01/17 12/01/17 05:00 06:00 06:00 WBC 12.9 H D RBC 4.32 Hgb 12.3 D Hct 34.9 L MCV 80.8 MCH 28.5 MCHC 35.2 RDW 15.0 H Plt Count 250 MPV 10.1 Sodium 141 Potassium 3.9 Chloride 109 H Carbon Dioxide 24 Anion Gap 13 BUN 8 Creatinine 0.6 L Est GFR ( Amer) > 60 Est GFR (Non-Af Amer) > 60 Random Glucose 93 Calcium 8.6 Phosphorus 3.3 Magnesium 1.8 Total Bilirubin 0.5 AST 26 ALT 37 Alkaline Phosphatase 78 Total Protein 6.4 Albumin 3.6 Globulin 2.8 Albumin/Globulin Ratio 1.3 Assessment & Plan - Assessment and Plan (Free Text) Plan: Assessment Sepsis due to ascending colon colitis HTN COPD S/P hysterectomy S/P bilateral carpal tunnel release Plan started Rocephin and Flagyl pending blood cx; reviewed CT A/P GI recommended Ultrasound of the abdomen and will follow up results and their further recommendations will monitor clinically
[2017-12-01] MEDS: Morphine 2 mg/ml ISec IVP PRN (22:13)
[2017-12-02] MEDS: metroNIDAZOLE IV 500 mg/100 ml 500 MG/100 ML BAG IVPB SCH (05:57)
[2017-12-02] MEDS: Morphine 2 mg/ml ISec IVP PRN (06:02)
[2017-12-02 06:33] LABS: HEMOGLOBIN 12.6 g/dL (12.0-16.0); MEAN CELL VOLUME 79.8 fl (80.0-105.0); MEAN CORPUSCULAR HEMOGLOBIN 28.6 pg (25.0-35.0); MEAN CORPUSCULAR HGB CONC 35.8 g/dl (31.0-37.0); MEAN PLATELET VOLUME 9.8 fl (7.0-11.0); RBC 4.41 10^6/uL (3.5-6.1); WHITE BLOOD COUNT 9.8 10^3/ul (4.5-11.0)
[2017-12-02] MEDS: Sodium Chloride 0.9% 1,000 ML IV SCH (07:12)
[2017-12-02 07:55] LABS: BLOOD UREA NITROGEN 5 mg/dL (7-21); GFR AFRICAN-AMERICAN > 60; GFR NON-AFRICAN AMERICAN > 60
[2017-12-02 07:56] LABS: CALCIUM 8.9 mg/dL (8.4-10.5)
[2017-12-02 07:57] LABS: ALB/GLOB RATIO 1.2 (1.1-1.8); ALBUMIN 3.6 g/dL (3.0-4.8); ALT/SGPT 31 U/L (7-56); AST/SGOT 24 U/L (14-36)
[2017-12-02] MEDS: Arformoterol 15 mcg/2 ml Inh Sol IH SCH ×2 (07:59→08:04)
[2017-12-02] MEDS: Budesonide 0.25 mg/2 ml Inhal Susp UD IH SCH ×2 (07:59→08:05)
[2017-12-02 08:24] VITALS: BP 125/83; PULSE 74; TEMP 98; O2SAT 92
[2017-12-02] MEDS: POLYETHYLENE GLYCOL 3350 17 GM/Dose PACKET PO SCH (09:05)
[2017-12-02] MEDS: Enoxaparin 40 mg Syringe SC SCH (09:05)
[2017-12-02] MEDS: cefTRIAXone 1 gm 1 GM/100 ML BAG IVPB SCH (09:06)
[2017-12-02] MEDS: Tiotropium 18 mcg Cap For Inhalation INH SCH (09:07)
--- NOTE | 2017-12-02 10:03 | CP.PCM.PN ---
Subjective - Date & Time of Evaluation Date of Evaluation: 12/02/17 Time of Evaluation: 07:00 - Subjective Subjective: Gastroenterology Progress Note for Dr. Zack Carney PGY2 Patient seen and examined at bedside in no acute distress eating her breakfast. Patient states she has been tolerating food well. Patient is getting food from outside [employer] restaurants but is complying with the liquids. Patient has not made any bowel movements with miralax. Admits to improvement in abdominal pain. Denies fevers, chills, nausea, vomiting, diarrhea, shortness of breath, headache , cough, chest pain. Objective - Vital Signs/Intake and Output Vital Signs (last 24 hours): Temp Pulse Resp BP Pulse Ox 98 F 74 20 125/83 92 L 12/02/17 08:24 12/02/17 09:05 12/02/17 08:24 12/02/17 09:05 12/02/17 08:24 Intake and Output: 12/02/17 12/02/17 06:59 18:59 Intake Total 1000 Balance 1000 - Medications Medications: Current Medications Amlodipine Besylate (Norvasc) 5 mg PO DAILY [facility] Last Admin: 12/02/17 09:05 Dose: 5 mg Arformoterol Tartrate (Brovana) 15 mcg IH [id number] [facility] Last Admin: 12/02/17 08:04 Dose: Not Given Aspirin (Ecotrin) 81 mg PO DAILY [facility] Last Admin: 12/02/17 09:04 Dose: 81 mg Budesonide (Pulmicort Respules) 0.25 mg IH [id number] [facility] Last Admin: 12/02/17 08:05 Dose: Not Given Enoxaparin Sodium (Lovenox) 40 mg SC DAILY [facility] PRN Reason: Protocol Last Admin: 12/02/17 09:05 Dose: Not Given Sodium Chloride (Sodium Chloride 0.9%) 1,000 mls @ 100 mls/hr IV .Q10H [facility] Last Admin: 12/02/17 07:12 Dose: Not Given Metronidazole (Flagyl) 500 mg in 100 mls @ 100 mls/hr IVPB Q8 [facility] PRN Reason: Protocol Last Admin: 12/02/17 05:57 Dose: 100 mls/hr Ceftriaxone Sodium (Rocephin 1 Gram Ivpb) 1 gm in 100 mls @ 100 mls/hr IVPB DAILY [facility] PRN Reason: Protocol Last Admin: 12/02/17 09:06 Dose: 100 mls/hr Metoprolol Tartrate (Lopressor) 25 mg PO DAILY [facility] Last Admin: 12/02/17 09:05 Dose: 25 mg Morphine Sulfate (Morphine) 2 mg IVP Q4H PRN PRN Reason: Pain, moderate (4-7) Last Admin: 12/02/17 06:02 Dose: 2 mg Ondansetron HCl (Zofran Inj) 4 mg IVP Q6H PRN PRN Reason: Nausea/Vomiting Pantoprazole Sodium (Protonix Inj) 40 mg IVP DAILY [facility] Last Admin: 12/02/17 09:06 Dose: 40 mg Polyethylene Glycol (Miralax) 17 gm PO BID [facility] Last Admin: 12/02/17 09:05 Dose: 17 gm Tiotropium [place] (Spiriva) 18 mcg INH DAILY [facility] Last Admin: 12/02/17 09:07 Dose: 18 mcg - Labs Labs: 12/02/17 05:30 12/02/17 05:30 - Head Exam Head Exam: ATRAUMATIC, NORMAL INSPECTION, NORMOCEPHALIC - Eye Exam Eye Exam: EOMI, Normal appearance - ENT Exam ENT Exam: Mucous Membranes Moist - Neck Exam Neck Exam: Full ROM - Respiratory Exam Respiratory Exam: Clear to Ausculation Bilateral, NORMAL BREATHING PATTERN. absent: Rhonchi, Wheezes - Cardiovascular Exam Cardiovascular Exam: REGULAR RHYTHM, +S1, +S2 - GI/Abdominal Exam GI & Abdominal Exam: Soft, Normal Bowel Sounds. absent: Distended, Guarding, Rigid - Extremities Exam Extremities Exam: Full ROM, Normal Inspection - Back Exam Back Exam: NORMAL INSPECTION - Neurological Exam Neurological Exam: Alert, Awake, Oriented x3 - Psychiatric Exam Psychiatric exam: Normal Affect, Normal Mood - Skin Skin Exam: Intact, Normal Color, Warm Assessment and Plan - Assessment and Plan (Free Text) Assessment: 57 F with history of sciatica and hypertension presenting with complaints of abdominal pain and constipation found to have colitis of mid ascending colon. Plan: Abdominal pain d/t enterocolitis of mid ascending colon most likely of infectious etiology -Continue with Flagyl and rocephin day#2; WBC count downtrending -CLD; advance as tolerated -Patient had recent colonoscopy which revealed no abnormalities in 2016 -Continue to monitor labs -Abdominal ultrasound reveals dilated CBD measuring 10 mm and mild hepatomegaly ; liver enzymes are normal -Furhter evaluation of dilated CBD can be done as outpatient elective EUS
[2017-12-02] MEDS ORDERED: Lactobacillus Acidophilus 500 MU Cap PO SCH (10:15)
--- NOTE | 2017-12-02 12:31 | CP.PCM.DIS ---
<Mikey Lorenzo - Last Filed: 12/02/17 13:45> Provider - Provider Date of Admission: 11/30/17 21:33 Attending physician: Rickey Barrios MD Consults: GI - Dr. Dixon ID - Dr. Patrick covering Dr. Guerrero Time Spent in preparation of Discharge (in minutes): 100 Hospital Course - Lab Results Lab Results: Most Recent Lab Values WBC 9.8 10^3/ul (4.5-11.0) D 12/02/17 05:30 RBC 4.41 10^6/uL (3.5-6.1) 12/02/17 05:30 Hgb 12.6 g/dL (12.0-16.0) 12/02/17 05:30 Hct 35.2 % (36.0-48.0) L 12/02/17 05:30 MCV 79.8 fl (80.0-105.0) L 12/02/17 05:30 MCH 28.6 pg (25.0-35.0) 12/02/17 05:30 MCHC 35.8 g/dl (31.0-37.0) 12/02/17 05:30 RDW 15.0 % (11.5-14.5) H 12/02/17 05:30 Plt Count 250 10^3/uL (120.0-450.0) 12/02/17 05:30 MPV 9.8 fl (7.0-11.0) 12/02/17 05:30 Gran % 77.1 % (50.0-68.0) H 11/30/17 18:56 Lymph % (Auto) 14.4 % (22.0-35.0) L 11/30/17 18:56 [place] % (Auto) 7.5 % (1.0-6.0) H 11/30/17 18:56 Eos % (Auto) 0.8 % (1.5-5.0) L 11/30/17 18:56 Baso % (Auto) 0.2 % (0.0-3.0) 11/30/17 18:56 Gran # 13.68 (1.4-6.5) H 11/30/17 18:56 Lymph # (Auto) 2.6 (1.2-3.4) 11/30/17 18:56 [place] # (Auto) 1.3 (0.1-0.6) H 11/30/17 18:56 Eos # (Auto) 0.2 (0.0-0.7) 11/30/17 18:56 Baso # (Auto) 0.03 K/mm3 (0.0-2.0) 11/30/17 18:56 Sodium 143 mmol/L (132-148) 12/02/17 05:30 Potassium 4.0 mmol/L (3.6-5.0) 12/02/17 05:30 Chloride 109 mmol/L (98-107) H 12/02/17 05:30 Carbon Dioxide 23 mmol/L (21-33) 12/02/17 05:30 Anion Gap 15 (10-20) 12/02/17 05:30 BUN 5 mg/dL (7-21) L 12/02/17 05:30 Creatinine 0.6 mg/dl (0.7-1.2) L 12/02/17 05:30 Est GFR ( Amer) > 60 12/02/17 05:30 Est GFR (Non-Af Amer) > 60 12/02/17 05:30 Random Glucose 92 mg/dL (70-110) 12/02/17 05:30 Calcium 8.9 mg/dL (8.4-10.5) 12/02/17 05:30 Phosphorus 3.5 mg/dL (2.5-4.5) 12/02/17 05:30 Magnesium 2.0 mg/dL (1.7-2.2) 12/02/17 05:30 Total Bilirubin 0.4 mg/dL (0.2-1.3) 12/02/17 05:30 AST 24 U/L (14-36) 12/02/17 05:30 ALT 31 U/L (7-56) 12/02/17 05:30 Alkaline Phosphatase 75 U/L (38-126) 12/02/17 05:30 Total Protein 6.4 g/dL (5.8-8.3) 12/02/17 05:30 Albumin 3.6 g/dL (3.0-4.8) 12/02/17 05:30 Globulin 2.9 gm/dL 12/02/17 05:30 Albumin/Globulin Ratio 1.2 (1.1-1.8) 12/02/17 05:30 Lipase 41 U/L (23-300) 11/30/17 18:56 Urine Color Yellow (YELLOW) 11/30/17 18:56 Urine Appearance Clear (CLEAR) 11/30/17 18:56 Urine pH 6.5 (4.7-8.0) 11/30/17 18:56 Ur Specific [place] 1.020 (1.005-1.035) 11/30/17 18:56 Urine Protein Trace mg/dL (<30 mg/dL) H 11/30/17 18:56 Urine Glucose (UA) Negative mg/dL (NEGATIVE) 11/30/17 18:56 Urine Ketones Trace mg/dL (NEGATIVE) H 11/30/17 18:56 Urine Blood Trace-intact (NEGATIVE) H 11/30/17 18:56 Urine Nitrate Negative (NEGATIVE) 11/30/17 18:56 Urine Bilirubin Negative (NEGATIVE) 11/30/17 18:56 Urine Urobilinogen 0.2 E.U./dL (<1 E.U./dL) 11/30/17 18:56 Ur Leukocyte Esterase Negative Perico/uL (NEGATIVE) 11/30/17 18:56 Urine RBC 1 - 3 /hpf (0-2) 11/30/17 18:56 Urine WBC 2 - 5 /hpf (0-6) 11/30/17 18:56 Ur Epithelial Cells 3 - 4 /hpf (0-5) 11/30/17 18:56 Urine Bacteria Few (NEG) 11/30/17 18:56 HIV 1&2 Ag/Ab, 4th Gen Nonreactive (Nonreactive) 12/01/17 06:00 - Hospital Course Hospital Course: 57 year old female, travelling from [place], who presented to [facility]s Emergency Department on 11/30/17 for right sided abdominal pain, nausea, vomiting, and abdominal bloating after attending a cookout where she ate rice, beans, and kale salad. In the ED, a CT scan of the abdomen and pelvis showed middle ascending colon colitis with no signs of bowel obstruction. She was given a 1L NS bolus, started on Rocephin and Flagyl, and given pain medications and anti-emetics for symptom management. She was subsequently admitted with Gastroenterology and Infectious Disease consulted. An abdominal ultrasound was done showing a dilated common bile duct. Gastroenterology advanced her diet as tolerated, reviewed CT scan and ultrasound, continued antibiotics, and recommended outpatient GI workup including endoscopic ultrasound. Infectious Disease agreed with antibiotic therapy. Home medications for COPD and HTN were continued. She will be discharged with Ciprofloxacin and Flagyl, per GI recommendations, in addition to Miralax and Probiotics. Instructed to take medications as prescribed and to follow up with GI and her primary care doctor. This is a brief summary of her hospital course. For a detailed encounter please refer to medical records. - Date & Time of H&P Date of H&P: 12/01/17 Time of H&P: 02:56 Discharge Exam - Head Exam Head Exam: ATRAUMATIC, NORMAL INSPECTION, NORMOCEPHALIC - Eye Exam Eye Exam: EOMI, PERRL - ENT Exam ENT Exam: Mucous Membranes Moist - Respiratory Exam Respiratory Exam: Clear to PA & Lateral, NORMAL BREATHING PATTERN, UNREMARKABLE - Cardiovascular Exam Cardiovascular Exam: REGULAR RHYTHM, +S1, +S2 - GI/Abdominal Exam GI & Abdominal Exam: Normal Bowel Sounds, Soft, Tenderness - Neurological Exam Neurological exam: Alert, Oriented x3 - Psychiatric Exam Psychiatric exam: Normal Affect, Normal Mood Discharge Plan - Discharge Medications Prescriptions: Lactobacillus Acidophilus [Acidophilus Lactobacilli] 1 each PO BID 14 Days #28 capsule Ciprofloxacin [Cipro] 500 mg PO BID 7 Days #14 tab metroNIDAZOLE [Flagyl] 500 mg PO TID 7 Days #21 tab Polyethylene Glycol 3350 [Miralax] 17 gm PO BID 10 Days #20 ml - Follow Up Plan Condition: GOOD Disposition: HOME/ ROUTINE Instructions: Acute Abdomen (Belly Pain), Adult (DC), Ulcerative Colitis (DC) Additional Instructions: Please follow up with your primary care doctor in 3-5 days. Please follow up with Gastroenterology as instructed. Advance diet as instructed. Take medications as prescribed. For concerning or worsening symptoms, return to the ED. Pt to [facility] with [facility]. <Rickey Barrios - Last Filed: 12/02/17 15:15> Provider - Provider Date of Admission: 11/30/17 21:33 Attending physician: Rickey Barrios MD Hospital Course - Lab Results Lab Results: Most Recent Lab Values WBC 9.8 10^3/ul (4.5-11.0) D 12/02/17 05:30 RBC 4.41 10^6/uL (3.5-6.1) 12/02/17 05:30 Hgb 12.6 g/dL (12.0-16.0) 12/02/17 05:30 Hct 35.2 % (36.0-48.0) L 12/02/17 05:30 MCV 79.8 fl (80.0-105.0) L 12/02/17 05:30 MCH 28.6 pg (25.0-35.0) 12/02/17 05:30 MCHC 35.8 g/dl (31.0-37.0) 12/02/17 05:30 RDW 15.0 % (11.5-14.5) H 12/02/17 05:30 Plt Count 250 10^3/uL (120.0-450.0) 12/02/17 05:30 MPV 9.8 fl (7.0-11.0) 12/02/17 05:30 Gran % 77.1 % (50.0-68.0) H 11/30/17 18:56 Lymph % (Auto) 14.4 % (22.0-35.0) L 11/30/17 18:56 [place] % (Auto) 7.5 % (1.0-6.0) H 11/30/17 18:56 Eos % (Auto) 0.8 % (1.5-5.0) L 11/30/17 18:56 Baso % (Auto) 0.2 % (0.0-3.0) 11/30/17 18:56 Gran # 13.68 (1.4-6.5) H 11/30/17 18:56 Lymph # (Auto) 2.6 (1.2-3.4) 11/30/17 18:56 [place] # (Auto) 1.3 (0.1-0.6) H 11/30/17 18:56 Eos # (Auto) 0.2 (0.0-0.7) 11/30/17 18:56 Baso # (Auto) 0.03 K/mm3 (0.0-2.0) 11/30/17 18:56 Sodium 143 mmol/L (132-148) 12/02/17 05:30 Potassium 4.0 mmol/L (3.6-5.0) 12/02/17 05:30 Chloride 109 mmol/L (98-107) H 12/02/17 05:30 Carbon Dioxide 23 mmol/L (21-33) 12/02/17 05:30 Anion Gap 15 (10-20) 12/02/17 05:30 BUN 5 mg/dL (7-21) L 12/02/17 05:30 Creatinine 0.6 mg/dl (0.7-1.2) L 12/02/17 05:30 Est GFR ( Amer) > 60 12/02/17 05:30 Est GFR (Non-Af Amer) > 60 12/02/17 05:30 Random Glucose 92 mg/dL (70-110) 12/02/17 05:30 Calcium 8.9 mg/dL (8.4-10.5) 12/02/17 05:30 Phosphorus 3.5 mg/dL (2.5-4.5) 12/02/17 05:30 Magnesium 2.0 mg/dL (1.7-2.2) 12/02/17 05:30 Total Bilirubin 0.4 mg/dL (0.2-1.3) 12/02/17 05:30 AST 24 U/L (14-36) 12/02/17 05:30 ALT 31 U/L (7-56) 12/02/17 05:30 Alkaline Phosphatase 75 U/L (38-126) 12/02/17 05:30 Total Protein 6.4 g/dL (5.8-8.3) 12/02/17 05:30 Albumin 3.6 g/dL (3.0-4.8) 12/02/17 05:30 Globulin 2.9 gm/dL 12/02/17 05:30 Albumin/Globulin Ratio 1.2 (1.1-1.8) 12/02/17 05:30 Lipase 41 U/L (23-300) 11/30/17 18:56 Urine Color Yellow (YELLOW) 11/30/17 18:56 Urine Appearance Clear (CLEAR) 11/30/17 18:56 Urine pH 6.5 (4.7-8.0) 11/30/17 18:56 Ur Specific [place] 1.020 (1.005-1.035) 11/30/17 18:56 Urine Protein Trace mg/dL (<30 mg/dL) H 11/30/17 18:56 Urine Glucose (UA) Negative mg/dL (NEGATIVE) 11/30/17 18:56 Urine Ketones Trace mg/dL (NEGATIVE) H 11/30/17 18:56 Urine Blood Trace-intact (NEGATIVE) H 11/30/17 18:56 Urine Nitrate Negative (NEGATIVE) 11/30/17 18:56 Urine Bilirubin Negative (NEGATIVE) 11/30/17 18:56 Urine Urobilinogen 0.2 E.U./dL (<1 E.U./dL) 11/30/17 18:56 Ur Leukocyte Esterase Negative Perico/uL (NEGATIVE) 11/30/17 18:56 Urine RBC 1 - 3 /hpf (0-2) 11/30/17 18:56 Urine WBC 2 - 5 /hpf (0-6) 11/30/17 18:56 Ur Epithelial Cells 3 - 4 /hpf (0-5) 11/30/17 18:56 Urine Bacteria Few (NEG) 11/30/17 18:56 HIV 1&2 Ag/Ab, 4th Gen Nonreactive (Nonreactive) 12/01/17 06:00 Attending/Attestation - Attestation I have personally seen and examined this patient.: Yes I have fully participated in the care of the patient.: Yes I have reviewed all pertinent clinical information, including history, physical exam and plan: Yes Notes (Text): 12/02/17 15:13 Attending note; Patient seen and examined with resident. Patient is a 57-year-old female with past medical history of hypertension, COPD is admitted with abdominal pain. CT abdomen and pelvis is consistent with acute colitis. Patient was treated with IV Rocephin and Flagyl. Leukocytosis resolved. Abdominal pain is resolved. Constipation; started on MiraLAX. Patient was started on clear liquid diet and advance to regular diet. Patient is tolerating diet well. CT of the abdomen and ultrasound showed mildly dilated CBD. GI evaluation appreciated. Patient needs outpatient elective EUS. CT scan results given to the patient. Patient will follow-up with PMD and GI in [place]. Discharge home with po Cipro and Flagyl. The diagnosis, follow-up plan discussed with patient in detail.
--- NOTE | 2017-12-02 19:08 | CP.PCM.PN ---
Subjective - Date & Time of Evaluation Date of Evaluation: 12/02/17 Time of Evaluation: 10:40 - Subjective Subjective: Patient is feeling better, no fevers, not in distress, much improved abdominal pain. Objective - Vital Signs/Intake and Output Vital Signs (last 24 hours): Temp Pulse Resp BP Pulse Ox 98 F 74 20 125/83 92 L 12/02/17 08:24 12/02/17 08:24 12/02/17 08:24 12/02/17 08:24 12/02/17 08:24 Intake and Output: 12/02/17 12/02/17 06:59 18:59 Intake Total 1000 Balance 1000 - Medications Medications: Current Medications Amlodipine Besylate (Norvasc) 5 mg PO DAILY [facility] Last Admin: 12/01/17 09:52 Dose: 5 mg Arformoterol Tartrate (Brovana) 15 mcg IH [id number] [facility] Last Admin: 12/02/17 08:04 Dose: Not Given Aspirin (Ecotrin) 81 mg PO DAILY [facility] Last Admin: 12/01/17 09:50 Dose: 81 mg Budesonide (Pulmicort Respules) 0.25 mg IH [id number] [facility] Last Admin: 12/02/17 08:05 Dose: Not Given Enoxaparin Sodium (Lovenox) 40 mg SC DAILY [facility] PRN Reason: Protocol Last Admin: 12/01/17 10:02 Dose: Not Given Sodium Chloride (Sodium Chloride 0.9%) 1,000 mls @ 100 mls/hr IV .Q10H [facility] Last Admin: 12/02/17 07:12 Dose: Not Given Metronidazole (Flagyl) 500 mg in 100 mls @ 100 mls/hr IVPB Q8 [facility] PRN Reason: Protocol Last Admin: 12/02/17 05:57 Dose: 100 mls/hr Ceftriaxone Sodium (Rocephin 1 Gram Ivpb) 1 gm in 100 mls @ 100 mls/hr IVPB DAILY [facility] PRN Reason: Protocol Last Admin: 12/01/17 09:53 Dose: 100 mls/hr Metoprolol Tartrate (Lopressor) 25 mg PO DAILY [facility] Last Admin: 12/01/17 09:50 Dose: 25 mg Morphine Sulfate (Morphine) 2 mg IVP Q4H PRN PRN Reason: Pain, moderate (4-7) Last Admin: 12/02/17 06:02 Dose: 2 mg Ondansetron HCl (Zofran Inj) 4 mg IVP Q6H PRN PRN Reason: Nausea/Vomiting Pantoprazole Sodium (Protonix Inj) 40 mg IVP DAILY [facility] Last Admin: 12/01/17 09:52 Dose: 40 mg Polyethylene Glycol (Miralax) 17 gm PO BID [facility] Last Admin: 12/01/17 17:27 Dose: 17 gm Tiotropium Clio (Spiriva) 18 mcg INH DAILY [facility] Last Admin: 12/01/17 09:54 Dose: 18 mcg - Labs Labs: 12/02/17 05:30 12/02/17 05:30 - Constitutional Appears: Non-toxic - Head Exam Head Exam: NORMAL INSPECTION - ENT Exam ENT Exam: Mucous Membranes Moist - Respiratory Exam Respiratory Exam: Decreased Breath Sounds. absent: Rales - Cardiovascular Exam Cardiovascular Exam: +S1, +S2 - GI/Abdominal Exam GI & Abdominal Exam: Soft. absent: Tenderness Assessment and Plan - Assessment and Plan (Free Text) Plan: Assessment Sepsis due to ascending colon colitis, slowly improving HTN COPD S/P hysterectomy S/P bilateral carpal tunnel release Plan continue Rocephin and Flagyl day 2 - blood cx are negative - reviewed CT A/P - would recommend 7-10 days of antibiotics
== END 2017-12-02 13:52 | disposition home or self-care (01) | DRG 813 ==
LOC: ED 17:12 → ERH 21:33 → 3RNO 22:57
PROVIDERS: ADMIT Hospitalist; ATTEND Internal Medicine
DX: K52.9 Noninfective gastroenteritis and colitis, unspecified (principal); J44.9 Chronic obstructive pulmonary disease, unspecified; I10 Essential (primary) hypertension; K83.8 Other specified diseases of biliary tract; K59.00 Constipation, unspecified; M54.30 Sciatica, unspecified side; Z79.82 Long term (current) use of aspirin; Z87.891 Personal history of nicotine dependence; Z83.3 Family history of diabetes mellitus; Z82.49 Family history of ischemic heart disease and other diseases of the circulatory system